=== PATIENT | male | born 1960 | race Caucasian/White ===

== ENCOUNTER 2020-04-29 23:20 | Emergency (ER) | payer MEDICAID ==
[2020-04-29] MEDS ORDERED: TDAP [DIPH/PERTUSSIS/TET] 0.5 ML VIAL IM ONE (23:44)
[2020-04-30] MEDS ORDERED: IV NS 0.9% 1,000 ML BAG IV ONE
[2020-04-30] MEDS ORDERED: TDAP [DIPH/PERTUSSIS/TET] 0.5 ML VIAL IM ONE
[2020-04-30] MEDS ORDERED: LORAZEPAM 1 MG TABLET ONE (06:43)
[2020-04-30] MEDS ORDERED: LORAZEPAM 1 MG TABLET PO ONE (07:00)
[2020-04-30] MEDS ORDERED: ACETAMINOPHEN 325 MG TABLET ONE (08:11)
[2020-04-30] MEDS ORDERED: LOSARTAN POTASSIUM 25 MG TABLET ONE (08:13)
[2020-04-30] MEDS ORDERED: ACETAMINOPHEN 325 MG TABLET PO ONE (08:30)
[2020-04-30] MEDS ORDERED: LOSARTAN POTASSIUM 25 MG TABLET PO ONE (08:30)
== END 2020-04-30 08:31 | disposition short-term general hospital (02) ==
DX: F10.129 Alcohol abuse with intoxication, unspecified (principal); Y90.8 Blood alcohol level of 240 mg/100 ml or more; S00.81XA Abrasion of other part of head, initial encounter; W18.30XA Fall on same level, unspecified, initial encounter; Y92.039 Unspecified place in apartment as the place of occurrence of the external cause; Z85.89 Personal history of malignant neoplasm of other organs and systems; E11.9 Type 2 diabetes mellitus without complications; I10 Essential (primary) hypertension; G31.9 Degenerative disease of nervous system, unspecified; Z20.828 Contact with and (suspected) exposure to other viral communicable diseases
CPT/HCPCS: 36415; 70450; 80048; 80076; 80305; 80307; 82962; 85025; 87426; 90471; 90715; 93005; 96360; 99285; C9803; J7030

== ENCOUNTER 2020-11-07 22:38 | Emergency (ER) | payer MEDICAID ==
[~2020-11-07] VITALS: Ht 180.3 cm; Wt 61.2 kg
--- NOTE | 2020-11-07 23:18 | NUR ---
BIB AND [employer] IN [facility] TO ER BED 12.AAOX4. NOT IN RESP DISTRESS. BROUGHT IN FOR GT LEAK. PER PT, HE WAS ARESTED AND HIS GT WAS PULLED AND STARTED TO LEAK PER PT. UPON ASSESSING, GT IS INTACT. STOMA IS NORMAL. NO LEAK NOTED NOR PRISCILA STOMAL REDNESS. WAS AT THE BEDSIDE FOR EVAL. GT SITE WAS CLEANED AND DRESSING CHANGED.
--- NOTE | 2020-11-07 23:40 | NUR ---
PATIENT LEFT BEFORE TX COMPLETE, PT HAD DRSG CHANGED ON GT SITE BUT LEFT BEFORE DISCHARGE PAPERS WAS GIVEN. PT STATES HE DID NOT WANT TO BE HERE AND LEFT. ER DOCTOR AWARE.
[2020-11-08 01:38] VITALS: BP 164/103
== END 2020-11-07 22:57 | disposition home or self-care (01) ==
LOC: ER 22:41
DX: M25.531 Pain in right wrist (principal); M25.532 Pain in left wrist; Z53.21 Procedure and treatment not carried out due to patient leaving prior to being seen by health care provider

== ENCOUNTER 2020-11-16 22:07 | Emergency (ER) | payer MEDICAID, OTHER ==
[~2020-11-16] VITALS: Ht 180.3 cm; Wt 61.2 kg
--- NOTE | 2020-11-16 22:25 | NUR ---
PT CAME TO THE ER C/O HEARING VOICES TELLING "YOU'RE A MOLESTER". PT DENIES VISUAL HALLUCINATION. PT DENIES SI/HI. PT AAOX4, VSS, RESPIRATIONS EVEN AND UNLABORED ON RA W/ NAD NOTED. PT CONNECTED TO THE SANE RN AND POX
--- NOTE | 2020-11-16 22:32 | NUR ---
URINE COLLECTED AND SENT TO LAB
--- NOTE | 2020-11-16 22:32 | NUR ---
LAB AT BEDSIDE FOR BLOOD DRAW
[2020-11-16 22:37] LABS: BILIRUBIN,URINE Negative (NEGATIVE); COLOR,URINE YELLOW (YELLOW); LEUKOCYTE ESTERASE ,URINE Negative (NEGATIVE); NITRITE, URINE Negative (NEGATIVE); PROTEIN,URINE Negative (NEGATIVE); UGLUCOSE Negative (NEGATIVE); UROBILINOGEN,URINE 0.2 EU/dL (0.2)
[2020-11-16] MEDS ORDERED: OLANZAPINE 10 MG VIAL IM ONE (22:40)
[2020-11-16 22:42] LABS: BASOPHILS # (AUTO) 0.1 /CMM (0.0-0.2); BASOPHILS % (AUTO) 1.2 % (0.0-2.0); HEMATOCRIT 30 % (39-51); HEMOGLOBIN 10.4 g/dL (13.5-17.5); LYMPHOCYTES # (AUTO) 0.3 /CMM (0.8-4.8); LYMPHOCYTES % (AUTO) 6.3 % (20.0-44.0); MEAN CORPUSCULAR HGB CONC 35 g/dl (31.0-36.0); MEAN CORPUSCULAR VOLUME 92 fL (80-96); MONOCYTES # (AUTO) 0.6 /CMM (0.1-1.30); MONOCYTES % (AUTO) 12.8 % (2.0-12.0); NEUTROPHILS # (AUTO) 3.6 /CMM (1.8-8.9); NEUTROPHILS % (AUTO) 78.7 % (43.0-81.0); PLATELET COUNT (AUTO) 191 /CMM (150-450); RED BLOOD CELL COUNT(AUTO) 3.25 MIL/uL (4.5-6.0); WHITE BLOOD COUNT (AUTO) 4.6 K/uL (4.3-11.0)
[2020-11-16] MEDS: OLANZAPINE 10 MG VIAL IM ONE (22:46)
[2020-11-16 22:50] LABS: CALCIUM, SERUM 7.6 mg/dL (8.5-10.1); CARBON DIOXIDE 30 mmol/L (21-32); CHLORIDE 98 mmol/L (98-107); CREATININE 1.3 mg/dL (0.6-1.3); GLUCOSE 102 mg/dL (74-106); POTASSIUM 3.5 mmol/L (3.5-5.1); SODIUM SERUM 134 mmol/L (136-145); UREA NITROGEN, BLOOD 21 mg/dL (7-18)
[2020-11-16 23:04] LABS: ALANINE AMINOTRANSFERASE 26 U/L (12-78); ALBUMIN 3.5 g/dL (3.4-5.0); ALCOHOL, BLOOD < 3 mg/dL (0-0); ALKALINE PHOSPHATASE 85 U/L (46-116); ASPARTATE AMINOTRANSFERASE 31 U/L (15-37); BILIRUBIN,DIRECT 0.3 mg/dL (0.0-0.2); BILIRUBIN,TOTAL 0.8 mg/dL (0.2-1.0); TOTAL PROTEIN, SERUM 7.1 g/dL (6.4-8.2)
[2020-11-16 23:05] LABS: ACETAMINOPHEN 0 ug/ml (10-30)
--- NOTE | 2020-11-16 23:29 | NUR ---
FACESHEET AND CLINICALS FAXED TO [facility].
--- NOTE | 2020-11-17 02:39 | NUR ---
PT SLEEPING IN [facility]. NO SIGNS OF DISTRESS NOTED. WILL CONT TO MONITOR PT.
--- NOTE | 2020-11-17 04:26 | NUR ---
PT DENIES SI/HI. PT STATES "I WANT TO LEAVE." MD AWARE. PT DENIES AUDITORY AND VISUAL HALLUCINATIONS. PT AAOX4, VSS, RESPIRATIONS EVEN AND UNLABORED ON RA W/ NAD NOTED. PT AMBULATORY W/ STEADY GAIT
--- NOTE | 2020-11-17 04:27 | NUR ---
Patient discharged to home in stable condition. Written and verbal after care instructions given. Patient verbalizes understanding of instruction.pt.ambulatory with a steady gait
[2020-11-17 04:29] VITALS: BP 115/84
--- NOTE | 2020-11-17 04:30 | NUR ---
PT LEFT WITHOUT ACI
== END 2020-11-17 04:30 | disposition home or self-care (01) ==
LOC: ER 22:10
DX: R45.851 Suicidal ideations (principal); R44.0 Auditory hallucinations; F10.10 Alcohol abuse, uncomplicated; Y90.0 Blood alcohol level of less than 20 mg/100 ml; Z60.2 Problems related to living alone
CPT/HCPCS: 36415; 80048; 80076; 80299; 80307; 80320; 81003; 85025; 96372; 99285; J3490; G0480

== ENCOUNTER 2021-12-09 17:22 | Emergency (ER) | payer OTHER ==
[~2021-12-09] VITALS: Ht 180.3 cm; Wt 66.2 kg
--- NOTE | 2021-12-09 17:30 | NUR ---
ER BED 12 BIBRA 839 FROM HOME C/O ETOH. HEAD PAIN PT STATES HE FELL ON HIS HEAD.
--- NOTE | 2021-12-09 18:00 | NUR ---
R FA GAUGE 20 ESTABLISHED
[2021-12-09 18:32] LABS: BASOPHILS # (AUTO) 0.1 K/uL (0.0-0.2); BASOPHILS % (AUTO) 0.7 % (0.0-2.0); EOSINOPHILS % (AUTO) 0.8 % (0.0-6.0); HEMATOCRIT 44 % (39-51); HEMOGLOBIN 14.9 g/dL (13.5-17.5); LYMPHOCYTES # (AUTO) 0.8 K/uL (0.8-4.8); LYMPHOCYTES % (AUTO) 10.6 % (20.0-44.0); MEAN CORPUSCULAR HGB CONC 34 g/dl (31.0-36.0); MEAN CORPUSCULAR VOLUME 92 fL (80-96); MONOCYTES # (AUTO) 0.4 K/uL (0.1-1.30); MONOCYTES % (AUTO) 5.9 % (2.0-12.0); NEUTROPHILS # (AUTO) 5.9 K/uL (1.8-8.9); PLATELET COUNT (AUTO) 356 K/uL (150-450); RED BLOOD CELL COUNT(AUTO) 4.79 MIL/uL (4.5-6.0); WHITE BLOOD COUNT (AUTO) 7.2 K/uL (4.3-11.0)
[2021-12-09 18:35] LABS: CALCIUM, SERUM 9.5 mg/dL (8.5-10.1); CARBON DIOXIDE 27 mmol/L (21-32); CHLORIDE 102 mmol/L (98-107); CREATININE 1.2 mg/dL (0.6-1.3); GLUCOSE 100 mg/dL (74-106); POTASSIUM 3.8 mmol/L (3.5-5.1); SODIUM SERUM 142 mmol/L (136-145); UREA NITROGEN, BLOOD 14 mg/dL (7-18)
[2021-12-09 18:42] LABS: ALANINE AMINOTRANSFERASE 38 U/L (12-78); ALBUMIN 4.1 g/dL (3.4-5.0); ALCOHOL, BLOOD 305 mg/dL (0-0); ALKALINE PHOSPHATASE 95 U/L (46-116); ASPARTATE AMINOTRANSFERASE 55 U/L (15-37); BILIRUBIN,DIRECT 0.1 mg/dL (0.0-0.2); BILIRUBIN,TOTAL 0.3 mg/dL (0.2-1.0); TOTAL PROTEIN, SERUM 8.7 g/dL (6.4-8.2)
[2021-12-09 18:44] LABS: ACETAMINOPHEN 0 ug/ml (10-30)
--- NOTE | 2021-12-09 18:44 | NUR ---
CT AT BEDISDE
[2021-12-09 21:27] LABS: BILIRUBIN,URINE NEGATIVE (NEGATIVE); COLOR,URINE YELLOW (YELLOW); LEUKOCYTE ESTERASE ,URINE NEGATIVE (NEGATIVE); NITRITE, URINE NEGATIVE (NEGATIVE); PROTEIN,URINE NEGATIVE (NEGATIVE); UGLUCOSE NEGATIVE (NEGATIVE); UROBILINOGEN,URINE 0.2 EU/dL (0.2)
--- NOTE | 2021-12-09 21:47 | NUR ---
PT AGITATED AND COMBATIVE. PLACED ON BILATERAL RESTRAINTS. MD AWARE
--- NOTE | 2021-12-09 22:45 | NUR ---
MARILYN OLVERA - [phone]. NO ANSWER Addendum: 12/09/21 at 2252 by SOUMYA [phone]
--- NOTE | 2021-12-09 22:54 | NUR ---
SPOKE WITH UNABLE TO CARD READER PT.
--- NOTE | 2021-12-10 06:00 | NUR ---
CALLED AND SPOKE WITH FOR [employer] BUT IS UNABLE TO PICK PT UP. PT IS IN SATBLE CONDITION. AMBULATORY ON STEADY GAIT. PT WILL BE GOING HOME ON HIS OWN AND WILL BE PROVIDED WITH A TAP CARD.
[2021-12-10 06:04] VITALS: BP 104/81
== END 2021-12-10 06:05 | disposition home or self-care (01) ==
LOC: ER 17:24
DX: F10.129 Alcohol abuse with intoxication, unspecified (principal); S09.90XA Unspecified injury of head, initial encounter; W19.XXXA Unspecified fall, initial encounter; Y92.89 Other specified places as the place of occurrence of the external cause; Z20.822 Contact with and (suspected) exposure to COVID-19; Z85.89 Personal history of malignant neoplasm of other organs and systems; R94.31 Abnormal electrocardiogram [ECG] [EKG]; Z98.1 Arthrodesis status
CPT/HCPCS: 36415; 70450; 71045; 72125; 80048; 80076; 80143; 80307; 80320 ×2; 81003; 82550; 82553; 84484 ×2; 85025; 87426; 93005; 99285; C9803; G0480

== ENCOUNTER 2022-03-20 10:30 | Emergency (ER) | payer OTHER ==
[~2022-03-20] VITALS: Ht 180.3 cm; Wt 65.8 kg
--- NOTE | 2022-03-20 10:40 | NUR ---
BIB RA 839 AND [employer] OFFICERS FROM HOME,VERBALIZED THAT HE WILL DRINK HIMSELF TO . THE PATIENT IS ALERT AND ORIENTED X3. DENIES HI. THE PATIENT DENIES VISUAL/AUDITORY HALLUCINATIONS. THE PATIENT IS IN ROOM AIR AND DENIES SOB. RESPIRATION REGULAR AND UNLABORED. DENIES PAIN. SAFETY CHECK DONE. SITTER AT THE BEDSIDE. WILL CONTINUE TO MONITOR THE PATIENT.
--- NOTE | 2022-03-20 11:22 | NUR ---
COVID ANTIGEN SWAB DONE AND SENT TO THE LAB
--- NOTE | 2022-03-20 11:35 | NUR ---
URINE COLLECTED AND SENT TO THE LAB
[2022-03-20 11:53] LABS: BILIRUBIN,URINE NEGATIVE (NEGATIVE); COLOR,URINE YELLOW (YELLOW); LEUKOCYTE ESTERASE ,URINE NEGATIVE (NEGATIVE); NITRITE, URINE NEGATIVE (NEGATIVE); PH,URINE 6.5 (5.0-8.0); PROTEIN,URINE 30 mg/dl (NEGATIVE); UGLUCOSE NEGATIVE (NEGATIVE); UROBILINOGEN,URINE 0.2 EU/dL (0.2)
[2022-03-20 12:00] LABS: BASOPHILS % (AUTO) 0.3 % (0.0-2.0); HEMATOCRIT 40 % (39-51); HEMOGLOBIN 13.8 g/dL (13.5-17.5); LYMPHOCYTES # (AUTO) 0.4 K/uL (0.8-4.8); LYMPHOCYTES % (AUTO) 7.4 % (20.0-44.0); MEAN CORPUSCULAR HGB CONC 35 g/dl (31.0-36.0); MEAN CORPUSCULAR VOLUME 89 fL (80-96); MONOCYTES # (AUTO) 0.2 K/uL (0.1-1.30); NEUTROPHILS % (AUTO) 88.3 % (43.0-81.0); PLATELET COUNT (AUTO) 292 K/uL (150-450); RED BLOOD CELL COUNT(AUTO) 4.51 MIL/uL (4.5-6.0); WHITE BLOOD COUNT (AUTO) 5.7 K/uL (4.3-11.0)
[2022-03-20 12:16] LABS: BACTERIA,URINE Rare /HPF (None Seen); RBC,URINE 0-2 /HPF (0-2); SQUAMOUS EPITHELIAL CELL,UR Few /HPF (None Seen)
[2022-03-20 12:22] LABS: CALCIUM, SERUM 8.6 mg/dL (8.5-10.1); CREATININE 1.2 mg/dL (0.6-1.3); POTASSIUM 3.8 mmol/L (3.5-5.1)
[2022-03-20 12:31] LABS: ALBUMIN 3.7 g/dL (3.4-5.0); BILIRUBIN,DIRECT 0.2 mg/dL (0.0-0.2); BILIRUBIN,TOTAL 0.5 mg/dL (0.2-1.0); TOTAL PROTEIN, SERUM 7.9 g/dL (6.4-8.2)
[2022-03-20] MEDS ORDERED: Thiamine 100 MG/ML VIAL IV ONE (13:00)
[2022-03-20] MEDS ORDERED: MULTIVITAMIN/LUTEIN/MINERALS 1 TAB PO SCH (13:00)
[2022-03-20] MEDS ORDERED: FOLIC ACID 1 MG TABLET PO SCH (13:00)
[2022-03-20] MEDS ORDERED: FOLIC ACID 1 MG TABLET ONE (13:30)
[2022-03-20] MEDS ORDERED: MULTIVITAMIN/LUTEIN/MINERALS 1 TAB ONE (13:30)
[2022-03-20] MEDS ORDERED: THIAMINE HCL 100 MG TABLET ONE (13:30)
--- NOTE | 2022-03-20 15:52 | NUR ---
SS Consult: SS consult requested for suicidal ideation, and alcohol use. Pt. is a 61-year-old male who was BIBRA and [employer] to [facility] ED due to suicidal ideation. Per EMR, pt. call EMS due to fearign he would "drink himself to " and made suicidal statements. Upon SS consult pt. is alert and oriented x3 (time, self and situation). Pt. is in a depressed mood and distressed affect. Pt. was tearful throughout the interview. Pt. appears unkempt and provided appropriate eye contact. Pt. was cooperative. Pt. presented with an illogical thought process. Per EMR, pt.s alcohol levels were elevated. Pt. is still somewhat intoxicated and pending medical clearance. SW explored pt.s current living situation. Pt. stated he lives at [[address], [place] [address]] with his , Beckie ([phone]) who he states is currently on vacation. wedding planner explored pt.s substance use history. Pt. stated he drinks when he doesnt spanish moss picker his medication. Pt. stated he has cancer and is prescribed [place]. Pt. stated he ran out of medication and began to drink. SW explored pt.s psychiatric history. Pt. stated he is diagnosed with depression and anxiety. Pt. stated he has a psychiatrist and therapist. Pt. stated he has felt suicidal in the past due to his cancer diagnosis. Pt. stated he does not currently have suicidal ideation. Pt. stated that he wanted to drink himself to prior to admission. Pt. denied homicidal ideation. Pt. denied visual/auditory hallucinations. Plan: Upon discharge. Pt. stated he wanted to return home to [address], [place] [address]. However, pt. is still on a 5150 hold for DTS. RENNY will follow up regarding placement once pt. is medically cleared. RENNY discussed this with ED staff. RENNY provided pt. with the following mental health and addiction resources to pt. and he accepted them: ADDICTION RESOURCES For Drugs and Alcohol [facility] sober living Referrals For Rehabilitation once sober Address:[address] [place] [address] [facility] [address] [place] [address] Detox/residential [facility] Substance Abuse Helpline ([facility]) Outpatient, residential treatment, recovery support for youth/adults [facility] www.actionfamilycouns[facility] Teen programs for drug/alcohol education and support Fritz Alvarez [place]. Program for adults, sliding scale provides support and education [employer] www.Kateeva.org [place]; Detox/residential treatment programs; transition to sober living [facility] www.cri-help.org [place]; Outpatient and residential treatment programs; transition to sober living [facility] TEL: [phone] I-[facility]ARP [facility] [place] [facility] Damián Urr[place]; Outpatient education and supportive programs for teens and adults [facility] www.oasiswomensrecsouthwest medical cent[facility].org [place]; Residential treatment and work program for females only [place] www.[facility] centerCar[facility] Mobile[facility].org [place]: Outpatient/residential treatment program for teens and young adults [facility] www.[facility].org [facility] Detox, inpatient, outpatient for adults and youth [facility], [facility]. [place]; Outpatient programs and referrals to community residential programs. Alcoholics Anonymous -SFV information and meeting and scheduleswww.aa-intergroup.org Peter https://al-anon.org/ [place] support groups for family of alcoholics. Marijuana Anonymous www.madistrict6.org -SFV listing of meetings Narcotics Anonymous www.na.org SOBER LIVING RESOURCES [facility] www.soberhouSMGBB.net A non-profit agency that provides resources to recovery and sober living homes throughout [place], [place], [place] Men's Sober Living Homes: A Work in Progress, [place], [place] [facility] Women's Sober Living Homes: [facility] x [phone] [place], [place] [facility], [place], operated by [facility] Sober Living Homes: [facility] Counseling--Outpatient [facility] [address] [address] (Specializes in in-depth psychotherapy for emotional distress: anxiety, depression, interpersonal conflicts, life transitions, childhood abuse) [facility] [address] [place] [address] (Assist with solving problem marital difficulties, separation & divorce, aging parents, & grief, chronic & terminal illness) [facility] [address] [place] [address] (Deal with loss & grief, anxiety, marital difficulties) Homebound/Mental Health Services [address] [facility], [address] [place], [place] [id number] (Provide in-home mental services to people who are incapable of leaving their homes) Organization for Needs of the Elderly Senior Service/Resource Center [address] [place] [address] [facility] [address] [place] [address] Mental Health Services Nat Gross [address] [place] [address] Services: Outpatient therapy for children, teens, young adults, adults, older adults, and families; Psychiatric services, medication support Psychiatric Outpatient Services [facility] Partial Hospitalization and Intensive Outpatient Program (Managed Care and Mark Only)[address] [facility] [phone] [facility] Partial Hospitalization and Outpatient [id number] [place], [place] [phone] Critical access hospital [facility] [id number] [facility]. [address] [place], [place] [phone] [facility] Partial Hospitalization and Outpatient [id number] [facility] [place], [phone] Crisis and Hotline Telephone Numbers 24-Hour service unless stated [place] Crisis Hotlines: [facility] Mental Health/Crisis Line........644.425.3783 Suicide Prevention Center (24 Hours).......[phone] Suicide Prevention Crisis Center.......[phone] (24 Hours) Assaults Against Women Hotline.........137.665.5011 (24 Hours -- [facility]) Women and Children Crisis M[facility]...........[phone] (24 Hours) Child Abuse Hotline............197.320.2176 [facility] (24 Hours)..........[phone] Alcoholics Anonymous (24 Hours)..........[phone] Cocaine Anonymous (24 Hours)............[phone] Narcotics Anonymous (24 Hours)..........[phone] Yohana Rodriguez [facility] [address] [address]
--- NOTE | 2022-03-20 15:58 | NUR ---
RENNY notified Esteban lozano about psych consult order needed.
--- NOTE | 2022-03-20 15:59 | NUR ---
SW will follow up with psych hospital placement once pt. is medically cleared.
--- NOTE | 2022-03-20 17:25 | NUR ---
THE PATIENT GAVE PERMISSION TO TALK TO WADE (GIRLFRIEND). PER WADE THE PATIENT WAS DIAGNOSED WITH A BLOOD CLOT IN THE LEG (DOES NOT REMEMBER WHICH LEG) 2 WEEKS AGO AND HE HAD BEEN NON-COMPLIANT WITH HIS ELIQUIS. DR PRATER MADE AWARE.
[2022-03-20] MEDS ORDERED: CHLORDIAZEPOXIDE HCL 25 MG CAPSULE PO ONE (21:00)
[2022-03-20] MEDS ORDERED: CHLORDIAZEPOXIDE HCL 25 MG CAPSULE ONE (21:36)
--- NOTE | 2022-03-20 21:41 | NUR ---
PT RESTING COMFORTABLY IN BED, DENIES ANY PAIN AT THIS TIME. EXPLAINED PLAN TO PT. PT AGREES. WILL CONTINUE TO MONITOR.
--- NOTE | 2022-03-20 23:25 | NUR ---
CRISIS BIOINFORMATICS ANALYST AT BEDSIDE
[2022-03-20] MEDS ORDERED: QUETIAPINE FUMARATE 100 MG TABLET ONE (23:45)
[2022-03-20] MEDS ORDERED: QUETIAPINE FUMARATE 25 MG TABLET ONE (23:46)
[2022-03-21] MEDS ORDERED: QUETIAPINE FUMARATE 100 MG TABLET PO SCH
--- NOTE | 2022-03-21 05:54 | NUR ---
Patient discharged to home in stable condition. Written and verbal after care instructions given. Patient verbalizes understanding of instruction. Pt ambulatory with a steady gait.
[2022-03-21 05:55] VITALS: BP 119/67
== END 2022-03-21 05:55 | disposition home or self-care (01) ==
LOC: ER 10:32
DX: F10.229 Alcohol dependence with intoxication, unspecified (principal); Y90.8 Blood alcohol level of 240 mg/100 ml or more; R45.851 Suicidal ideations; M79.605 Pain in left leg; M79.604 Pain in right leg; R60.0 Localized edema; Z20.822 Contact with and (suspected) exposure to COVID-19
CPT/HCPCS: 99285; 85025; 80048; 80076; 81001; 36415; 93970; 87426; 80143; 80320 ×2; 80307; C9803; G0480

== ENCOUNTER 2023-11-15 16:16 | Emergency (ER) | payer OTHER ==
[~2023-11-15] VITALS: Ht 177.8 cm; Wt 63.5 kg
[2023-11-15 16:25] VITALS: TEMP 98.6
[2023-11-15] MEDS ORDERED: OLANZAPINE 5 MG TABLET ONE (17:04)
[2023-11-15] MEDS: OLANZAPINE 5 MG TABLET PO ONE (17:06)
[2023-11-15 17:42] LABS: BASOPHILS % (AUTO) 0.3 % (0.0-2.0); EOSINOPHILS % (AUTO) 0.3 % (0.0-6.0); HEMATOCRIT 34 % (39-51); HEMOGLOBIN 11.7 g/dL (13.5-17.5); LYMPHOCYTES # (AUTO) 0.6 K/uL (0.8-4.8); LYMPHOCYTES % (AUTO) 6.9 % (20.0-44.0); MEAN CORPUSCULAR HEMOGLOBIN 32 PG (26.0-33.0); MEAN CORPUSCULAR HGB CONC 35 g/dl (31.0-36.0); MEAN CORPUSCULAR VOLUME 93 fL (80-96); MONOCYTES # (AUTO) 0.6 K/uL (0.1-1.30); MONOCYTES % (AUTO) 6.9 % (2.0-12.0); NEUTROPHILS # (AUTO) 7.5 K/uL (1.8-8.9); NEUTROPHILS % (AUTO) 85.6 % (43.0-81.0); PLATELET COUNT (AUTO) 212 K/uL (150-450); RED BLOOD CELL COUNT(AUTO) 3.65 MIL/uL (4.5-6.0); RED CELL DISTRIBUTION WIDTH 14.3 % (11.5-15.0); WHITE BLOOD COUNT (AUTO) 8.8 K/uL (4.3-11.0)
[2023-11-15 17:51] LABS: CALCIUM, SERUM 8.6 mg/dL (8.5-10.1); CREATININE 1.4 mg/dL (0.6-1.3); POTASSIUM 3.7 mmol/L (3.5-5.1)
[2023-11-15 18:08] LABS: ALBUMIN 3.2 g/dL (3.4-5.0); BILIRUBIN,DIRECT 0.2 mg/dL (0.0-0.2); BILIRUBIN,TOTAL 0.6 mg/dL (0.2-1.0); TOTAL PROTEIN, SERUM 6.9 g/dL (6.4-8.2)
[2023-11-15 19:00] VITALS: BP 132/81; O2SAT 99
[2023-11-15 19:01] LABS: BARBITURATE, URINE NEGATIVE (NEGATIVE); CANNABINOID, URINE NEGATIVE (NEGATIVE); COCCAINE, URINE NEGATIVE (NEGATIVE); OPIATE, URINE NEGATIVE (NEGATIVE); PHENCYCLIDINE SCREEN,URINE NEGATIVE (NEGATIVE)
[2023-11-15 19:03] LABS: AMPHETAMINE, URINE POSITIVE (NEGATIVE); BENZODIAZEPINE, URINE POSITIVE (NEGATIVE)
[2023-11-15 19:30] LABS: APPEARANCE,URINE CLEAR (CLEAR); BILIRUBIN,URINE NEGATIVE (NEGATIVE); BLOOD, URINE NEGATIVE Ery/uL (NEGATIVE); COLOR,URINE YELLOW (YELLOW); KETONES,URINE NEGATIVE (NEGATIVE); LEUKOCYTE ESTERASE ,URINE NEGATIVE (NEGATIVE); NITRITE, URINE NEGATIVE (NEGATIVE); PROTEIN,URINE NEGATIVE (NEGATIVE); UGLUCOSE NEGATIVE (NEGATIVE); UROBILINOGEN,URINE 0.2 EU/dL (0.2)
== END 2023-11-15 22:31 | disposition left against medical advice (07) ==
LOC: ER 16:22
DX: R44.0 Auditory hallucinations (principal); Z60.2 Problems related to living alone
CPT/HCPCS: 36415; 80048-TC; 80076-TC; 85025-TC; G0480